=== PATIENT | male | born 1960 | race Caucasian/White ===

== ENCOUNTER → 2020-10-24 | Outpatient (CLI) | payer OTHER ==
[~2020-10-24] MED LIST: CYCLOBENZAPRINE5 MG PO; MOBIC15 MG PO
== END ==
LOC: EXRD 10:20
DX: M79.641 Pain in right hand (principal)
CPT/HCPCS: 73110; 73130

== ENCOUNTER → 2020-11-12 | Outpatient (CLI) | payer OTHER | LOC: DTC 08:36 | DX: E11.65 Type 2 diabetes mellitus with hyperglycemia (principal) | CPT/HCPCS: G0108 ==

== ENCOUNTER → 2020-11-28 | Outpatient (CLI) | payer OTHER | LOC: EXRD 11-20 13:30 | DX: E11.9 Type 2 diabetes mellitus without complications (principal); E04.2 Nontoxic multinodular goiter | CPT/HCPCS: 76536 ==

== ENCOUNTER 2021-04-17 18:26 | Emergency (ER) | payer OTHER | END 2021-04-17 19:28 | disposition home or self-care (01) | LOC: ER1 18:26 | DX: I95.9 Hypotension, unspecified (principal); I10 Essential (primary) hypertension; F17.210 Nicotine dependence, cigarettes, uncomplicated; E10.9 Type 1 diabetes mellitus without complications | CPT/HCPCS: 99283 ==

== ENCOUNTER 2021-04-24 11:04 | Emergency (ER) | payer OTHER | END 2021-04-24 15:05 | disposition home or self-care (01) | LOC: ER1 11:04 | DX: M25.551 Pain in right hip (principal); E11.9 Type 2 diabetes mellitus without complications; E78.5 Hyperlipidemia, unspecified; F17.200 Nicotine dependence, unspecified, uncomplicated | CPT/HCPCS: 73502; 96372; 99283; J1885 ==

== ENCOUNTER → 2021-11-11 | Outpatient (CLI) | payer OTHER ==
[2021-11-12 09:13] LABS: TSH 14.8 uIU/mL (0.450-4.500)
== END ==
LOC: LAB 10:54
PROVIDERS: Internal Medicine Endocrinology, Diabetes & Metabolism
DX: E05.90 Thyrotoxicosis, unspecified without thyrotoxic crisis or storm (principal)
CPT/HCPCS: 36415; 84439; 84443; 84481